=== PATIENT | male | born 1970 | race Caucasian/White ===

== ENCOUNTER 2018-02-09 21:43 | Emergency (ER) | payer BC ==
[2018-02-09] MEDS ORDERED: DIPH,PERTUS(ACELL)TETVAC-LF 0.5 ML VIAL IM ONE (22:37)
[2018-02-09 22:38] VITALS: BP 146/99; PULSE 85; RESP 18; TEMP 98
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
--- NOTE | 2018-02-09 22:52 | XR ---
EXAMINATION TYPE: XR knee complete RT DATE OF EXAM: 02/09/2018 COMPARISON: NONE HISTORY: Knee pain TECHNIQUE: 3 views FINDINGS: I see no fracture nor dislocation. Joint spaces are normal. There is no sign of knee joint effusion. IMPRESSION: Normal right knee
== END 2018-02-09 23:34 | disposition home or self-care (01) ==
LOC: EC 21:43
DX: S83.91XA Sprain of unspecified site of right knee, initial encounter (principal); S80.811A Abrasion, right lower leg, initial encounter; Z23 Encounter for immunization; Z88.8 Allergy status to other drugs, medicaments and biological substances; Z87.891 Personal history of nicotine dependence; V94.0XXA Hitting object or bottom of body of water due to fall from watercraft, initial encounter; X50.1XXA Overexertion from prolonged static or awkward postures, initial encounter; Y92.89 Other specified places as the place of occurrence of the external cause
CPT/HCPCS: 99283; 90471; 73562; 90715; L1830

== ENCOUNTER 2019-09-03 06:57 | Day surgery (SDC) | payer BC ==
[2019-09-01 09:04] VITALS: BMI 29.2
[~2019-09-03 06:57] MED LIST: DEXAMETHASONE SOD PHOSPHATE 10 MG/ML 1 ML VIAL IV ONE; HEPARIN SODIUM,PORCINE 5,000 UNIT/ML 1 ML VIAL SQ ONE; HYDROmorphone 0.5 MG/0.5 ML SYRINGE IVP PRN; LACTATED RINGERS 1,000 ML IV SCH; MIDAZOLAM 2 MG/2 ML VIAL IV PRN; ONDANSETRON 4 MG/2 ML VIAL IVP ONE; SCOPOLAMINE 1.5MG/72HR PATCH TRANSDERM ONE; metroNIDAZOLE-NS PMX 500 MG in SALINE 1 100ML.BAG IVPB ONE
[2019-09-03] MEDS ORDERED: LIDOCAINE 1% 20 ML VIAL (10MG/ML) FOR IV START INTRADERMA ONE (07:34)
[2019-09-03] MEDS ORDERED: PROPOFOL 10 MG/ML 20 ML VIAL IV ONE (07:53)
[2019-09-03] MEDS ORDERED: MIDAZOLAM 2 MG/2 ML VIAL ONE (07:53)
[2019-09-03] MEDS ORDERED: fentaNYL (PF) 50 MCG/ML 2 ML AMP ONE (07:53)
[2019-09-03] MEDS ORDERED: SUCCINYLCHOLINE CHLORIDE 100 MG/5 ML SYR IV ONE (07:53)
[2019-09-03] MEDS ORDERED: ePHEDrine SULFATE/0.9% NACL/PF 50 MG/5 ML SYRINGE IV ONE (07:53)
[2019-09-03] MEDS ORDERED: LIDOCAINE 1% INJ 10MG/ML (20 ML MDV) ONE (07:53)
[2019-09-03] MEDS ORDERED: METHYLENE BLUE 10 MG/ML (10 ML VIAL) MISCELLANE ONE (07:58)
[2019-09-03] MEDS ORDERED: BUPIVACAINE (PF) 0.25% 30 ML VIAL SQ ONE (07:58)
[2019-09-03] MEDS ORDERED: NALOXONE 0.4 MG/ML 1 ML VIAL IV PRN (08:52)
[2019-09-03] MEDS ORDERED: HYDROmorphone 0.5 MG/0.5 ML SYRINGE IVP PRN (08:52)
[2019-09-03 09:10] VITALS: TEMP 96.9
--- NOTE | 2019-09-03 09:19 | P.OP ---
Date of Procedure: 09/03/19 Procedure(s) Performed: PREOPERATIVE DIAGNOSIS: Pilonidal cyst POSTOPERATIVE DIAGNOSIS: Same PROCEDURE: Pilonidal cystectomy SURGEON: Brian ROSSL: Minimal ANESTHESIA: General COMPLICATIONS: None OPERATIVE PROCEDURE: Patient was placed prone on the operating table. The gluteal crease was prepped and draped in usual sterile fashion after the patient was placed in the prone jackknife position. The pilonidal cyst opening was instilled with methylene blue solution. An elliptical incision was made around the pilonidal cyst opening including the additional puncta that were present inferiorly. Dissection took place down through the subcutaneous tissues using sharp dissection. Care was taken to be sure that the entire cyst cavity was removed. Specimen was sent to pathology. The operative site was irrigated with saline. It was then infiltrated with local anesthesia. The subcutaneous tissues were then reapproximated using interrupted 3-0 Vicryl sutures. The skin was closed using a interrupted 30 nylon horizontal mattress sutures. Sterile dressings then applied. DISPOSITION: Stable to recovery room
[2019-09-03 10:17] VITALS: BP 116/72; PULSE 77; RESP 16
== END 2019-09-03 10:30 | disposition home or self-care (01) ==
LOC: OR 06:57
PROVIDERS: ATTEND Surgery
DX: L05.91 Pilonidal cyst without abscess (principal); Z82.49 Family history of ischemic heart disease and other diseases of the circulatory system; Z86.14 Personal history of Methicillin resistant Staphylococcus aureus infection; I49.3 Ventricular premature depolarization; G47.33 Obstructive sleep apnea (adult) (pediatric); Z99.89 Dependence on other enabling machines and devices; Z86.61 Personal history of infections of the central nervous system; F17.200 Nicotine dependence, unspecified, uncomplicated; Z79.899 Other long term (current) drug therapy; Z88.8 Allergy status to other drugs, medicaments and biological substances; Z91.048 Other nonmedicinal substance allergy status
CPT/HCPCS: 11770; 88304; J2250; J1644; J1100; J0690; J2405; J2001; Q9968; J3010; J0330; J2704

== ENCOUNTER 2020-01-26 16:09 | Inpatient (IN) | payer BC ==
[2020-01-26] MEDS ORDERED: SODIUM CHLORIDE 0.9% 1,000 ML IV STA (17:48)
--- NOTE | 2020-01-26 18:34 | XR ---
EXAMINATION TYPE: XR foot complete RT DATE OF EXAM: 01/26/2020 CLINICAL HISTORY: Pain and swelling redness worse over first toe. TECHNIQUE: Frontal, lateral, and oblique images of the right foot are obtained. COMPARISON: None FINDINGS: There is no acute fracture/dislocation evident in the right foot. Some irregularity in the first metatarsal head with sclerosis is present. Extension to involve the medial base of the first m etatarsal with adjacent soft tissue ossifications are present. Findings favor product of chronic oste omyelitis but difficult to exclude some acute involvement as there are some lucent areas noted withou t prior comparison. Flexion and the second through fifth toes incidentally noted. Calcifications dist al Achilles tendon incidentally noted. The overlying soft tissue appears unremarkable. IMPRESSION: As above.
[2020-01-26] MEDS ORDERED: VANCOMYCIN IV PER PHARMACY 1 EACH MISC MISCELLANE PRN (18:52)
[2020-01-26] MEDS ORDERED: PIPERACILLIN-TAZOBACTAM 3.375 GM in SODIUM CHLORIDE 0.9% 100 ML IVPB STA (18:52)
[2020-01-26 19:12] LABS: Basophils # (A) 0.1 k/uL (0-0.2); Basophils % (A) 1 %; Eosinophils # (A) 0.3 k/uL (0-0.7); Eosinophils % (A) 3 %; HCT 46.2 % (39.0-53.0); HGB 15.1 gm/dL (13.0-17.5); Lymphocytes # (A) 3.1 k/uL (1.0-4.8); Lymphocytes % (A) 31 %; MCH 29.2 pg (25.0-35.0); MCHC 32.6 g/dL (31.0-37.0); MCV 89.5 fL (80.0-100.0); Mean Platelet Volume 7.8; Monocytes # (A) 0.6 k/uL (0-1.0); Monocytes % (A) 6 %; Neutrophils # (A) 5.5 k/uL (1.3-7.7); Neutrophils % (A) 56 %; Platelet Count 301 k/uL (150-450); RBC 5.16 m/uL (4.30-5.90); RDW 13.8 % (11.5-15.5); WBC 9.9 k/uL (3.8-10.6)
[2020-01-26 19:19] LABS: ALT 36 U/L (4-49); AST 33 U/L (17-59); African American GFR (CKD) >90 (>60 ml/min/1.73 sqM); Albumin 4.6 g/dL (3.5-5.0); Alkaline Phosphatase 66 U/L (38-126); Anion Gap 10 mmol/L; Blood Urea Nitrogen 20 mg/dL (9-20); Calcium 10.1 mg/dL (8.4-10.2); Carbon Dioxide 25 mmol/L (22-30); Chloride 105 mmol/L (98-107); Glucose 96 mg/dL (74-99); Non-African American GFR(CKD) >90 (>60 ml/min/1.73 sqM); Potassium 4.2 mmol/L (3.5-5.1); Sodium 140 mmol/L (137-145); Total Bilirubin 0.3 mg/dL (0.2-1.3); Total Protein 7.5 g/dL (6.3-8.2)
[2020-01-26] MEDS ORDERED: VANCOMYCIN 2,000 MG in SODIUM CHLORIDE 0.9% 500 ML 500 ML IVPB ONE (19:30)
[2020-01-26] MEDS ORDERED: diphenhydrAMINE 50 MG/ML 1 ML VIAL IVP STA (19:50)
[2020-01-26] MEDS ORDERED: NALOXONE 0.4 MG/ML 1 ML VIAL IV PRN (20:26)
--- NOTE | 2020-01-26 20:28 | ED ---
General Adult HPI - General Chief complaint: Wound/Laceration Stated complaint: recheck - infected toe Time Seen by Provider: 01/26/20 16:43 Source: patient, RN notes reviewed, old records reviewed Mode of arrival: ambulatory Limitations: no limitations - History of Present Illness Initial comments: 50-year-old male patient is ED for evaluation of right great toe. Patient has a long history of this toe in 2016 he had a significant infection of this toe reportedly MSSA yesterday he was working in his yard when he came back he noticed that his right great toe was red and painful. Patient also reports that while working he had some sort of puncture in the right great toe through the dorsum of his shoe. He states that it was a thorn of a fine states that it was not a bandar. Patient was seen by his primary care provider is that she is on Rocephin as well as Bactrim. He reports that since then he is not having drainage from his toe the redness has gotten worse and he is very concerned. He denies any systemic symptoms. Denies any other complaints. Systemic: Pt denies fatigue, fever/chills. Pt denies weakness, night sweats, weight loss. Neuro: Pt denies headache, visual disturbances, syncope or pre-syncope. HEENT: Pt denies ocular discharge or irritation, otalgia, rhinorrhea, pharyngitis or notable lymphadenopathy. Cardiopulmonary: Pt denies chest pain, SOB, heart palpitations, dyspnea on exertion. Abdominal/GI: Pt denies abdominal pain, n/v/d. : Pt denies dysuria, burning w/ urination, frequency/urgency. Denies new onset urinary or bowel incontinence. MSK: Pt denies myalgia, loss of strength or function in extremities. Neuro: Pt denies new onset weakness, paresthesias. - Related Data Home Medications Medication Instructions Recorded Confirmed Albuterol Inhaler (Mhu) [Ventolin 2 puff INHALATION RT-BID PRN 02/09/18 01/26/20 Hfa Inhaler] Nicotine Polacrilex [Nicorette] 4 mg PO Q2-3H PRN 01/26/20 01/26/20 Allergies Allergy/AdvReac Type Severity Reaction Status Date / Time mold Allergy Verified 01/26/20 19:15 bupropion [From Wellbutrin] AdvReac Anaphylaxis Verified 01/26/20 19:15 Review of Systems ROS Statement: Those systems with pertinent positive or pertinent negative responses have been documented in the HPI. ROS Other: All systems not noted in ROS Statement are negative. Past Medical History Past Medical History: Asthma, Sleep Apnea/CPAP/BIPAP Additional Past Medical History / Comment(s): pilonidal cyst,PVCs,uses cpap,Hx sepsis post foot surgery-MSSA infection,viral meningitis 2019 History of Any Multi-Drug Resistant Organisms: None Reported Date of last positivie culture/infection: MSSA right foot MDRO Source:: MSSA Past Surgical History: Back Surgery, Orthopedic Surgery Additional Past Surgical History / Comment(s): ORIF rt foot-mult surgeries and hardware removed Past Anesthesia/Blood Transfusion Reactions: No Reported Reaction Past Psychological History: No Psychological Hx Reported Smoking Status: Former smoker Past Alcohol Use History: Rare Past Drug Use History: None Reported - Past Family History Mother Family Medical History: No Reported History General Exam - General Exam Comments Initial Comments: Constitutional: NAD, AOX3, Pt has pleasant affect. HEENT: NC/AT, trachea midline. External ears appear normal, without discharge. Mucous membranes moist. EOM intact. There is no scleral icterus. No pallor noted. Cardiopulmonary: RRR, no murmurs, rubs or gallops, no JVD noted. Lungs CTAB in anterior and posterior grijalva. No peripheral edema. Abdominal exam: Abdomen soft and non-distended. Abdomen non-tender to palpation in all 4 quadrants. Bowel sounds active in LLQ. No ecchymosis Neuro: CN II-XII grossly intact. No nuchal rigidity. No raccon eyes, no feliz sign, no hemotympanum. No cervical spinal tenderness. MSK: Right great toe is erythematous with superficial blisters noted erythema is extending up the proximal aspect of the first metatarsal. No posterior calf tenderness bilaterally, homans sign negative bilaterally. Posterior tibialis and radial pulse +2 bilaterally. Sensation intact in upper and lower extremities. Full active ROM in upper and lower extremities, 5/5 stregnth. Limitations: no limitations Course Vital Signs 01/26/20 16:37 Temperature 96.4 F L Pulse Rate 82 Respiratory 17 Rate Blood Pressure 146/88 O2 Sat by Pulse 97 Oximetry Medical Decision Making - Medical Decision Making 50-year-old male patient is ED for evaluation of right great toe. Patient has a long history of this toe in 2016 he had a significant infection of this toe reportedly MSSA yesterday he was working in his yard when he came back he noticed that his right great toe was red and painful. Patient also reports that while working he had some sort of puncture in the right great toe through the dorsum of his shoe. He states that it was a thorn of a fine states that it was not a bandar. Patient was seen by his primary care provider is that she is on Rocephin as well as Bactrim. He reports that since then he is not having drainage from his toe the redness has gotten worse and he is very concerned. He denies any systemic symptoms. Denies any other complaints. Patient vital signs are stable, afebrile. Physical exam displayed: Right great toe is erythematous with superficial blisters noted erythema is extending up the proximal aspect of the first metatarsal. Point films displayed no acute fracture dislocation. Findings are chronic osteomyelitis but difficult to exclude some acute involvement. Patient is here and Zosyn and vancomycin. Patient tetanus updated in 2018. Will be admitted for further elevation. Case discussed with Dr. Villarreal. - Lab Data Result diagrams: 01/26/20 18:30 01/26/20 18:30 Lab Results 01/26/20 01/26/20 01/26/20 Range/Units 18:30 18:30 18:30 WBC 9.9 (3.8-10.6) k/uL RBC 5.16 (4.30-5.90) m/uL Hgb 15.1 (13.0-17.5) gm/dL Hct 46.2 (39.0-53.0) % MCV 89.5 (80.0-100.0) fL MCH 29.2 (25.0-35.0) pg MCHC 32.6 (31.0-37.0) g/dL RDW 13.8 (11.5-15.5) % Plt Count 301 (150-450) k/uL Neutrophils % 56 % Lymphocytes % 31 % Monocytes % 6 % Eosinophils % 3 % Basophils % 1 % Neutrophils # 5.5 (1.3-7.7) k/uL Lymphocytes # 3.1 (1.0-4.8) k/uL Monocytes # 0.6 (0-1.0) k/uL Eosinophils # 0.3 (0-0.7) k/uL Basophils # 0.1 (0-0.2) k/uL Sodium 140 (137-145) mmol/L Potassium 4.2 (3.5-5.1) mmol/L Chloride 105 (98-107) mmol/L Carbon Dioxide 25 (22-30) mmol/L Anion Gap 10 mmol/L BUN 20 (9-20) mg/dL Creatinine 0.83 (0.66-1.25) mg/dL Est GFR (CKD-EPI)AfAm >90 (>60 ml/min/1.73 sqM) Est GFR (CKD-EPI)NonAf >90 (>60 ml/min/1.73 sqM) Glucose 96 (74-99) mg/dL Plasma Lactic Acid Eros 1.3 (0.7-2.0) mmol/L Calcium 10.1 (8.4-10.2) mg/dL Total Bilirubin 0.3 (0.2-1.3) mg/dL AST 33 (17-59) U/L ALT 36 (4-49) U/L Alkaline Phosphatase 66 (38-126) U/L Total Protein 7.5 (6.3-8.2) g/dL Albumin 4.6 (3.5-5.0) g/dL Disposition Clinical Impression: Foot infection Disposition: ADMITTED IP TO THIS HOSP Condition: Serious Is patient prescribed a controlled substance at d/c from ED?: No Referrals: Stefan Mcmillan MD [Primary Care Provider] - 1-2 days
[2020-01-26] MEDS: SODIUM CHLORIDE 0.9% 1,000 ML IV SCH ×2 (20:52→21:49)
[2020-01-27] MEDS ORDERED: IPRATROPIUM-ALBUTEROL 3 ML NEB INHALATION PRN (04:21)
[2020-01-27] MEDS ORDERED: VANCOMYCIN IV PER PHARMACY 1 EACH MISC MISCELLANE PRN (04:23)
--- NOTE | 2020-01-27 04:23 | P.HPIM ---
History of Present Illness H&P Date: 01/26/20 The patient was seen and examined in the emergency room on 01/26 at 9 PM The patient is a 50-year-old male with a PMH of R great toe osteomyelitis (2014 - at a hospital in [place], subsequent sepsis with ICU stay) presented to the ED with complaints of sudden onset of right great toe swelling, warmth, and pain. The patient notes that his symptoms started yesterday a few hours after he had worked in the [place] clearing up some bushes. He reports possible contact with poison aubree, though cannot be sure. The patient subsequently went to his PMD earlier today and was given an IM ceftriaxone dose and was prescribed Bactrim and was advised that if his symptoms persist or worsen, that he should come to the emergency room. The patient notes that he continued to have significant right toe pain, 5 out of 10, nonradiating, which prompted him to come to the emergency room. He denied fever, chills, nausea, vomiting, chest pain, shortness of breath. In the ED, foot x-ray revealed likely chronic osteomyelitis of the right first metatarsal with possible acute osteomyelitis. Laboratory evaluation revealed a WBC count of 9.9, hemoglobin 15.1, platelets 301, sodium 140, potassium 4.2, BUN 20, creatinine 0.83, and glucose 96 with lactate 1.3. Review of Systems Pertinent positives and negatives as discussed in HPI, a complete review of systems was performed and all other systems are negative. Past Medical History Past Medical History: Asthma, Sleep Apnea/CPAP/BIPAP Additional Past Medical History / Comment(s): pilonidal cyst,PVCs,uses cpap,Hx sepsis post foot surgery-MSSA infection,viral meningitis 2019 History of Any Multi-Drug Resistant Organisms: None Reported Date of last positivie culture/infection: MSSA right foot MDRO Source:: MSSA Past Surgical History: Back Surgery, Orthopedic Surgery Additional Past Surgical History / Comment(s): ORIF rt foot-mult surgeries and hardware removed Past Anesthesia/Blood Transfusion Reactions: No Reported Reaction Past Psychological History: No Psychological Hx Reported Smoking Status: Former smoker Past Alcohol Use History: Rare Additional Past Alcohol Use History / Comment(s): started at age 20-on and off- trying to quit-<1ppd Past Drug Use History: None Reported - Past Family History Mother Family Medical History: No Reported History Medications and Allergies Home Medications Medication Instructions Recorded Confirmed Type Albuterol Inhaler (Mhu) [Ventolin 2 puff INHALATION RT-BID PRN 02/09/18 01/26/20 History Hfa Inhaler] Nicotine Polacrilex [Nicorette] 4 mg PO Q2-3H PRN 01/26/20 01/26/20 History Allergies Allergy/AdvReac Type Severity Reaction Status Date / Time mold Allergy Verified 01/26/20 19:15 bupropion [From Wellbutrin] AdvReac Anaphylaxis Verified 01/26/20 19:15 Physical Exam Vitals: Vital Signs Temp Pulse Resp BP Pulse Ox 01/26/20 21:31 98.3 F 61 16 154/92 99 01/26/20 16:37 96.4 F L 82 17 146/88 97 Intake and Output 01/26/20 01/26/20 01/26/20 06:59 14:59 22:59 Other: # Voids 1 Weight 119.748 kg General: non toxic, no distress, appears at stated age, overweight Derm: Right great toe purple discoloration warmth and single fluid-filled blister 2 cm noted, tenderness of right great toe, with erythema extending to the second metatarsal, no open wounds noted, warm, dry Head: atraumatic, normocephalic, symmetric Eyes: EOMI, no lid lag, anicteric sclera, pupils equal round reactive to light ENT: Nose and ears atraumatic, no thrush, no pharyngeal erythema Neck: No thyromegaly, no cervical lymphadenopathy, trachea midline, supple Mouth: no lip lesion, mucus membranes moist Cardiovascular: S1S2 reg, no murmur, positive posterior tibial pulse bilateral, no edema, capillary refill less than 2 seconds Lungs: CTA bilateral, no rhonchi, no rales , no accessory muscle use Abdominal: soft, nontender to palpation, no guarding, no appreciable organomegaly, normal bowel sounds Ext: no gross muscle atrophy, muscle strength 5 out of 5 in all 4 extremities grossly, no contractures, Neuro: CN II-XI grossly intact, light touch intact all 4 extremities, finger to nose within normal limits, Psych: Alert, oriented, appropriate affect Results CBC & Chem 7: 01/26/20 18:30 01/26/20 18:30 Thrombosis Risk Factor Assmnt - Choose All That Apply Any of the Below Risk Factors Present?: Yes Each Factor Represents 1 point: Age 41-60 years Other Risk Factors: No Other congenital or acquired thrombophilia - If yes, enter type in comment: No Thrombosis Risk Factor Assessment Total Risk Factor Score: 1 Thrombosis Risk Factor Assessment Level: Low Risk Assessment and Plan Plan: Right great toe erythema and discoloration with pain, likely acute on chronic osteomyelitis -Consult orthopedic surgery and infectious disease -Continue with vancomycin and start cefazolin -Follow up blood cultures -Continue with IV fluids History of asthma -DuoNeb's when necessary DVT prophylaxis -Heparin subq The patient is admitted with an anticipated greater than 2 midnight stay for evaluation of osteomyelitis CODE STATUS: Full Code Discussed with: Patient Anticipated discharge date: 2-[address]: Home A total of 35 minutes was spent on the care of this complex patient more than 50% of the time was spent in counseling and care coordination.
[2020-01-27] MEDS ORDERED: VANCOMYCIN 2,000 MG in SODIUM CHLORIDE 0.9% 500 ML 500 ML IVPB SCH (06:00)
[2020-01-27] MEDS: VANCOMYCIN 2,000 MG in SODIUM CHLORIDE 0.9% 500 ML 500 ML IVPB SCH ×2 (06:11→15:25)
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
[2020-01-27 09:34] LABS: HCT 45.4 % (39.0-53.0); MCH 30.1 pg (25.0-35.0); Mean Platelet Volume 7.8; Platelet Count 279 k/uL (150-450); RBC 4.98 m/uL (4.30-5.90); RDW 13.7 % (11.5-15.5)
[2020-01-27] MEDS: HEPARIN SODIUM,PORCINE 5,000 UNIT/ML 1 ML VIAL SQ SCH ×3 (09:52→22:59)
[2020-01-27] MEDS: SODIUM CHLORIDE 0.9% 1,000 ML IV SCH ×2 (09:56→22:07)
--- NOTE | 2020-01-27 20:30 | P.PN ---
Subjective Progress Note Date: 01/27/20 (delayed charting seen at 1030) Principal diagnosis: right foot pain Patient is a 50-year-old male with a history of right great toe osteomyelitis treated with IV antibiotics but no amputation, sleep apnea, and asthma who presented to the emergency department with right great toe pain and swelling. He had been seen at his primary care physician's office earlier in and given a dose of Rocephin IM as well as a prescription for Bactrim. He took one dose of his Bactrim prescription. He felt as though his foot continued to worsen and he therefore presented to the emergency department. In the ER his laboratory analysis was essentially unremarkable. X-ray of the foot revealed chronic osteomyelitis with possible acute posterior. Orthopedics was consulted and compared this to his x-ray back in 2018 unit. Unremarkable. Infectious disease was consulted. He had been started on vancomycin and Keflex. By the morning after admission patient reported improvement in his toe pain and discoloration. Patient seen and examined at bedside. He states his toe pain is resolved. He believes the color is better. He denies any chest pain, shortness breath, n ausea, vomiting, or diarrhea. Objective - Vital Signs Vital signs: Vital Signs Temp 98.1 F 01/27/20 19:00 Pulse 59 L 01/27/20 19:00 Resp 18 01/27/20 19:00 BP 144/89 01/27/20 19:00 Pulse Ox 99 01/27/20 19:00 Intake & Output 01/27/20 01/27/20 01/28/20 06:59 18:59 06:59 Intake Total 1800 Balance 1800 Weight 119.748 kg Intake: Intake, IV Titration 850 Amount Sodium Chloride 0.9% 1, 300 000 ml @ 75 mls/hr IV . [id number] BRIA Rx#:[id number] Vancomycin 2,000 mg In 500 Sodium Chloride 0.9% 500 ml 500 ml @ 167 mls/hr IVPB Q8H BRIA Rx#: [id number] ceFAZolin 2 gm In Sodium 50 Chloride 0.9% 50 ml @ 100 mls/hr IVPB Q8HR BRIA Rx# :[id number] Oral 950 Other: # Voids 1 3 - Exam General: non toxic, no distress, appears at stated age Derm: Right great toe appears twice the size of the left great toe, redness and purplish discoloration, draining serous fluid, one blister, no warmth, warm, dry Head: atraumatic, normocephalic, symmetric Eyes: EOMI, no lid lag, anicteric sclera Mouth: no lip lesion, mucus membranes moist Cardiovascular: S1S2 reg, no murmur, positive posterior tibial pulse bilateral, Lungs: CTA bilateral, no rhonchi, no rales , no accessory muscle use Abdominal: soft, nontender to palpation, no guarding, no appreciable organomegaly Ext: no gross muscle atrophy, no edema, no contractures Neuro: CN II-XI grossly intact, no focal neuro deficits Psych: Alert, oriented, appropriate affect - Labs CBC & Chem 7: 01/27/20 08:57 01/26/20 18:30 Assessment and Plan Assessment: Right great toe cellulitis, doubt acute osteomyelitis but does have chronic osteo -Await infectious disease recommendations -Continue with Keflex and vancomycin -Orthopedic recommendations appreciated -Pain control History of asthma -DuoNeb's when necessary DVT prophylaxis: SCDs Discussed with: patient, nursing Anticipated discharge: in AM Anticipated discharge place: home A total of 25 minutes was spent on the care of this complex patient more than 50% of the time was spent in counseling and care coordination.
[2020-01-27] MEDS ORDERED: ACETAMINOPHEN TAB 325 MG TAB PO PRN (21:18)
[2020-01-28] MEDS ORDERED: VANCOMYCIN TROUGH DUE 1 EACH MISC MISCELLANE ONE (05:00)
[2020-01-28 06:09] LABS: HCT 44.7 % (39.0-53.0); HGB 14.5 gm/dL (13.0-17.5); MCH 28.7 pg (25.0-35.0); MCHC 32.4 g/dL (31.0-37.0); MCV 88.7 fL (80.0-100.0); Mean Platelet Volume 7.8; Platelet Count 275 k/uL (150-450); RBC 5.04 m/uL (4.30-5.90); RDW 13.6 % (11.5-15.5); WBC 7.3 k/uL (3.8-10.6)
[2020-01-28 06:19] LABS: African American GFR (CKD) >90 (>60 ml/min/1.73 sqM); Anion Gap 5 mmol/L; Blood Urea Nitrogen 13 mg/dL (9-20); Calcium 9.2 mg/dL (8.4-10.2); Carbon Dioxide 24 mmol/L (22-30); Chloride 107 mmol/L (98-107); Glucose 97 mg/dL (74-99); Non-African American GFR(CKD) >90 (>60 ml/min/1.73 sqM); Potassium 4.2 mmol/L (3.5-5.1); Sodium 136 mmol/L (137-145)
[2020-01-28 07:55] VITALS: BP 120/80; PULSE 106; RESP 16; TEMP 98.7
--- NOTE | 2020-01-28 08:55 | P.PN ---
Subjective Progress Note Date: 01/28/20 Principal diagnosis: Right great toe superficial infection This is a 50 year-old male who was admitted for a right great toe infection. The patient was evaluated at the bedside today. The patient denies fever, chills, nausea, vomiting, abdominal pain, shortness of breath, and chest pain this morning. He states his pain is controlled at this time. Dr. Dougherty has seen the patient and anticipates he can go home today with oral antibiotics. Objective - Vital Signs Vital signs: Vital Signs Temp 98.7 F 01/28/20 07:00 Pulse 106 H 01/28/20 07:00 Resp 16 01/28/20 07:00 BP 120/80 01/28/20 07:00 Pulse Ox 98 01/28/20 07:00 Intake & Output 01/27/20 01/28/20 01/28/20 18:59 06:59 18:59 Intake Total 1800 300 Balance 1800 300 Intake: Intake, IV Titration 850 Amount Sodium Chloride 0.9% 1, 300 000 ml @ 75 mls/hr IV . [id number] BRIA Rx#:[id number] Vancomycin 2,000 mg In 500 Sodium Chloride 0.9% 500 ml 500 ml @ 167 mls/hr IVPB Q8H BRIA Rx#: [id number] ceFAZolin 2 gm In Sodium 50 Chloride 0.9% 50 ml @ 100 mls/hr IVPB Q8HR BRIA Rx# :[id number] Oral 950 300 Other: # Voids 3 1 - Exam The patient is a 50 y/o male in no acute distress. He is alert and oriented x3. Exam of the right foot reveals a healed incision over the dorsal medial aspect of the 1st MTP joint. There is continued improvement and erythema to the dorsal aspect of the great toe. There is some improvement in the blisters as well. No open blisters are present. No areas of fluctuation are present. No red streaking or swelling into the foot. Calf is soft and non-tender. Foot is warm and well-perfused. Capillary refill <2 seconds. - Labs CBC & Chem 7: 01/28/20 05:51 01/28/20 05:51 Labs: Abnormal Lab Results - Last 24 Hours (Table) 01/28/20 Range/Units 05:51 Sodium 136 L (137-145) mmol/L Microbiology - Last 24 Hours (Table) 01/26/20 20:28 Blood Culture - Preliminary Blood No Growth after 24 hours Assessment and Plan (1) Foot infection Current Visit: Yes Status: Acute Code(s): L08.9 - LOCAL INFECTION OF THE SKIN AND SUBCUTANEOUS TISSUE, UNSP SNOMED Code(s): 379950385 Plan: The clinical and x-ray findings were discussed with the patient. The case was discussed at length with Dr. Titus. No surgical intervention is planned at this time. No acute changes on x-ray or MRI (from 2018) are present since 2018. A superficial skin infection is suspected. Since he is improving, he may be discharged today from an orthopedic standpoint with oral antibiotics. We recommend heat and elevation of the foot. Antibiotics per infectious disease. He may follow up with us on an outpatient basis if needed in 1 week.
--- NOTE | 2020-01-28 09:10 | P.CONS ---
History of Present Illness - Reason for Consult Consult date: 01/27/20 Right big toe cellulitis and question of osteomyelitis Requesting physician: Ladarius White - Chief Complaint Right big toe swelling and redness x 2 days - History of Present Illness Patient is a 50-year-old male with a past medical history significant for hammertoe deformity of the right big toe status post surgical correction in this patient's clinical course complicated by development of postoperative infection and Osteomyelitis with MSSA bacteremia requiring removal of all the hardware patient mentioned since then the patient big toe has been swollen more compared to his left big toe is and has [facility] and had did show some structure changes from his previous episode of osteomyelitis patient apparently was working outside in the yard that he gets inside few days ago he noticed his right big toe was swollen and red he did have some dull aching pain to right big toe with intensity of 3-4 out of 10 and no radiation, with these symptoms the patient was evaluated by his primary care physician where apparently the patient did have some cultures obtained he was given a dose of Rocephin and was discharged on Bactrim DS and instruction if any worsening of the redness to go to the ER the patient noticed redness to be spreading for the patient Is Admitted to [facility] ER Patient Arrived Has Been Afebrile and Did Have a Normal White Count , patient did have blood cultures are currently pending x-rays did shows some features of ostial myelitis patient has been started on vancomycin and cefazolin infectious disease was consulted for further management of antibiotic therapy she Review of Systems Positive point has been mentioned in the HPI rest of the systems are negative Past Medical History Past Medical History: Asthma, Sleep Apnea/CPAP/BIPAP Additional Past Medical History / Comment(s): pilonidal cyst,PVCs,uses cpap,Hx sepsis post foot surgery-MSSA infection,viral meningitis 2019 History of Any Multi-Drug Resistant Organisms: None Reported Year Discovered:: MSSA right foot MDRO Source:: MSSA Past Surgical History: Back Surgery, Orthopedic Surgery Additional Past Surgical History / Comment(s): ORIF rt foot-mult surgeries and hardware removed Past Anesthesia/Blood Transfusion Reactions: No Reported Reaction Past Psychological History: No Psychological Hx Reported Smoking Status: Former smoker Past Alcohol Use History: Rare Additional Past Alcohol Use History / Comment(s): started at age 20-on and off- trying to quit-<1ppd Past Drug Use History: None Reported - Past Family History Mother Family Medical History: No Reported History Medications and Allergies Home Medications Medication Instructions Recorded Confirmed Type Albuterol Inhaler (Mhu) [Ventolin 2 puff INHALATION RT-BID PRN 02/09/18 01/26/20 History Hfa Inhaler] Nicotine Polacrilex [Nicorette] 4 mg PO Q2-3H PRN 01/26/20 01/26/20 History Allergies Allergy/AdvReac Type Severity Reaction Status Date / Time mold Allergy Verified 01/26/20 19:15 bupropion [From Wellbutrin] AdvReac Anaphylaxis Verified 01/26/20 19:15 Physical Exam Vitals: Vital Signs Temp Pulse Pulse Resp BP BP Pulse Ox 01/27/20 11:37 97.5 F L 64 17 145/97 98 01/27/20 05:00 78 19 96 01/27/20 01:00 97.4 F L 65 20 152/105 100 01/26/20 21:31 98.3 F 61 16 154/92 99 01/26/20 16:37 96.4 F L 82 17 146/88 97 Intake and Output 01/27/20 01/27/20 01/27/20 06:59 14:59 22:59 Intake Total 150 Balance 150 Intake: Oral 150 GENERAL DESCRIPTION: Middle-aged male lying in bed, no distress. No tachypnea or accessory muscle of respiration use. HEENT: Shows Pallor , no scleral icterus. Oral mucous membrane is dry. No pharyngeal erythema or thrush NECK: Trachea central, no thyromegaly. LUNGS: Unlabored breathing. Clear to auscultation anteriorly. No wheeze or crackle. HEART: S1, S2, regular rate and rhythm. No loud murmur ABDOMEN: Soft, no tenderness , guarding or rigidity, no organomegaly EXTREMITIES: No edema of feet. Right big toe is swollen red no purulent d rainage SKIN: No rash, no masses palpable. NEUROLOGICAL: The patient is awake, alert, oriented x3, mood and affect normal. Results CBC & Chem 7: 01/28/20 05:51 01/28/20 05:51 Assessment and Plan Assessment: 1- patient with a right big toe cellulitis in this patient currently with no fever or elevated white count in excess findings may be related to his previous episodes ofOsteomyelitis as the patient is currently not behaving as ostial myelitis/deep infection and more likely from a positive skin amee suggests strep and less likely MRSA or gram-negative infection (1) Cellulitis of right foot Current Visit: Yes Status: Acute Code(s): L03.115 - CELLULITIS OF RIGHT LOWER LIMB SNOMED Code(s): 066523264 Plan: 1- discontinue the vancomycin 2-cefazolin 2 g every 8 hours to continue for another 24 hour in the patient continued to improve hopefully to finish therapy with oral antibiotics We will follow on clinical condition and cultures to further adjust medication if needed Thank you for this consultation will follow this patient with you Time with Patient: Greater than 30
[2020-01-28] MEDS: HEPARIN SODIUM,PORCINE 5,000 UNIT/ML 1 ML VIAL SQ SCH (09:41)
--- NOTE | 2020-01-28 10:30 | P.DS ---
Providers Date of admission: 01/26/20 20:05 Expected date of discharge: 01/28/20 Attending physician: Ladarius White MD Consults: 01/27/20 04:18 Consult Physician Routine Consulting Provider: Luis Felipe Dougherty Consult Reason/Comments: R great toe suspected osteo Do you want consulting provider notified?: Yes Consult Physician Urgent Consulting Provider: Ward Titus Consult Reason/Comments: R great toe possible osteo Do you want consulting provider notified?: Yes Primary care physician: Stefan [facility] Course: Discharge Diagnosis: Right great toe cellulitis Asthma Hospital Course: Patient is a 50-year-old male with a history of right great toe osteomyelitis treated with IV antibiotics but no amputation, sleep apnea, and asthma who presented to the emergency department with right great toe pain and swelling. He had been seen at his primary care physician's office earlier in the day and given a dose of Rocephin IM as well as a prescription for Bactrim. He took one dose of his Bactrim prescription. He felt as though his foot continued to worsen and he therefore presented to the emergency department. In the ER his laboratory analysis was essentially unremarkable. X-ray of the foot revealed chronic osteomyelitis with possible acute posterior. Orthopedics was consulted and compared this to his x-ray back in 2018 unit. Unremarkable. Infectious disease was consulted. He had been started on vancomycin and Keflex. By the morning after admission patient reported improvement in his toe pain and discoloration. Patient seen and examined at bedside. Feeling good, pain is better, toe is better, no nausea, no vomiting, wants to go home. Vital signs reviewed and stable. General: non toxic, no distress, appears at stated age Derm: redness no warmth right great toe warm, dry Head: atraumatic, normocephalic, symmetric Eyes: EOMI, no lid lag, anicteric sclera Mouth: no lip lesion, mucus membranes moist Cardiovascular: S1S2 reg, no murmur, positive posterior tibial pulse bilateral, Lungs: CTA bilateral, no rhonchi, no rales , no accessory muscle use Abdominal: soft, nontender to palpation, no guarding, no appreciable organomegaly Ext: no gross muscle atrophy, no edema, no contractures Neuro: CN II-XI grossly intact, no focal neuro deficits Psych: Alert, oriented, appropriate affect A total of 35 minutes of time were spent preparing this complex discharge summary . Patient Condition at Discharge: Stable Plan - Discharge Summary Discharge Rx Participant: No New Discharge Prescriptions: Continue Albuterol Inhaler (Mhu) [Ventolin Hfa Inhaler (Mhu)] 2 puff INHALATION RT-BID PRN PRN Reason: Shortness Of Breath Nicotine Polacrilex [Nicorette] 4 mg PO Q2-3H PRN PRN Reason: Nicotine Cravings Discharge Medication List Albuterol Inhaler (Mhu) [Ventolin Hfa Inhaler (Mhu)] 2 puff INHALATION RT-BID PRN 02/09/18 [History] Nicotine Polacrilex [Nicorette] 4 mg PO Q2-3H PRN 01/26/20 [History] Follow up Appointment(s)/Referral(s): Stefan Mcmillan MD [Primary Care Provider] - 1-2 days Ward Titus MD [STAFF PHYSICIAN] - 1 Week Activity/Diet/Wound Care/Special Instructions: Activity: as tolerated Diet: regular Special Instructions: Continue moist heat and elevation of the right great toe Bactrim twice daily for the next 7 days Discharge Disposition: HOME SELF-CARE
== END 2020-01-28 11:09 | disposition home or self-care (01) | DRG 603 ==
LOC: EC 16:09 → 5NMEDONC 20:05 → 4SSUR 01-27 15:27
PROVIDERS: ADMIT Internal Medicine; ATTEND Internal Medicine
DX: L03.031 Cellulitis of right toe (principal); M86.671 Other chronic osteomyelitis, right ankle and foot; J45.909 Unspecified asthma, uncomplicated; G47.30 Sleep apnea, unspecified; Z86.61 Personal history of infections of the central nervous system; Z87.891 Personal history of nicotine dependence; Z88.8 Allergy status to other drugs, medicaments and biological substances; Z11.59 Encounter for screening for other viral diseases; Z99.89 Dependence on other enabling machines and devices
CPT/HCPCS: 36415; 80048; 80053; 80202; 83605; 85025; 85027; 87040; 96361; 96365; 96366; 96367; 96368; 96372; 96375; 99285

== ENCOUNTER → 2020-03-29 | Outpatient (CLI) | payer BC ==
--- NOTE | 2020-03-29 11:55 | P.ARTDOP ---
Arterial Doppler LOWER EXTREMITY ARTERIAL DOPPLER: DATE OF SERVICE: 03/29/2020 Reason for study: Right leg ulcers. Doppler waveforms: Multiphasic bilaterally throughout. Pulse volume recording: []. Pressure gradients: None. Ankle-brachial indices: Greater than 1 bilaterally. Toe brachial indices: 0.87 on the right, 0.88 on the left Impression: Normal study.
== END | disposition home or self-care (01) ==
LOC: RADUSWWP 06:54
PROVIDERS: ATTEND Family Medicine
DX: I73.9 Peripheral vascular disease, unspecified (principal)
CPT/HCPCS: 93922

== ENCOUNTER → 2020-06-08 | Outpatient (CLI) | payer BC ==
[2020-06-08 12:22] LABS: Glucose 2 Hour 157 mg/dL
[2020-06-08 14:38] LABS: Protein, Total 6.8 g/dL (6.2-8.2)
[2020-06-09 14:00] LABS: Albumin 4.27 g/dL (3.80-4.90); Gamma Globulin 0.82 g/dL (0.70-1.50)
[2020-06-09 14:10] LABS: Angiotensin-1 Converting Enz. 25 U/L (8-52)
== END | disposition home or self-care (01) ==
LOC: LABWHC1 08:30
PROVIDERS: ATTEND Psychiatry & Neurology Neurology
DX: G62.9 Polyneuropathy, unspecified (principal)
CPT/HCPCS: 36415; 82164; 82306; 82607; 82947; 82950; 84165; 84207; 84425; 84446; 86038; 86235; 86334

== ENCOUNTER → 2021-03-13 | Outpatient (CLI) | payer BC ==
--- NOTE | 2021-03-13 21:09 | CONS ---
CONSULTATION REASON FOR CONSULTATION: Sleep apnea. HISTORY OF PRESENT ILLNESS: 51-year-old male patient with an established diagnosis of obstructive sleep apnea, who is coming in to establish himself as the patient for sleep apnea at the sleep center at [facility]. His original diagnosis was done in [place] and at that time the patient was found to have moderate severe disease with an AHI of 29. No official documentation on his original sleep study and this is based on the verbal report that was given by the patient. The patient was given a ResMed F9 series and subsequently was given a ResMed Med air sent A Pap units. He did establish himself locally here with Dr. Cruz, yet he was not satisfied with the followups and he ultimately came to us for further advice. He is currently undergoing further cardiac evaluation. He is a bit concerned that his heart rate would go slow at nighttime as he is monitoring his heart rate by his smart device. He also wants to make sure that the treatment is adequate. His sleep apnea treatment is adequate. I was unable to check the patient's machine. Nevertheless, I was able to obtain a compliance data from his machine. I was able to download 30 day compliancy, 90 day compliancy and 1 year compliancy. Based on all the records, the patient has been averaging more than 8 hours of CPAP use per night with an average leak of 16 L/minute and his AHI while on treatment has been less than 1. He has a Castro FX nasal pillow, medium size. He does not snore while on treatment. He averages around 8 hours of sleep per night on average. He goes to bed around midnight, wakes up 8:00 am in the morning. On a few instances while trying to go to sleep he has felt a gasp. However, this does not occur while sleeping. Based on the cardiac heart rate monitor, the average heart rate during the day has been in the mid 70s. His lowest heart rate during sleep has been 42. He dips in the mid 40s during sleep. He has not become symptomatic. No dizziness. No syncope. No lightheadedness. No nighttime angina or shortness of breath or chest pain or heartburn. Wakes up and he denies having any dry mouth. No drowsiness or sleepiness during the day. No grinding of the teeth. His weight has been up over the years and he is maintaining a weight of 275 pounds over the past 10 years at least. He does give history of PVCs in the past and he was being considered for ablation and ultimately these PVCs disappeared. No history of any other cardiovascular disease. No history of atrial fibrillation. No congestion heart failure. No coronary artery disease. PAST MEDICAL HISTORY: 1. History of obstructive sleep apnea. 2. Diverticulosis/diverticulitis. 3. History of septic shock from MSSA. 4. History of viral meningitis. PAST SURGICAL HISTORY: Includes diskectomy L5, foot surgery complicated by Staphylococcal septicemia. DRUG ALLERGIES: WELLBUTRIN. HE IS ALSO ALLERGIC TO POLLEN, MOLD, MILD MILDEW AND HAY FEVER. OUTPATIENT MEDICATION: Albuterol on a p.r.n. basis only. No other medications as maintenance. SOCIAL HISTORY: Nonsmoker. He is an ex-smoker and quit smoking recently. No history of alcoholism. No history of IV drugs. FAMILY HISTORY: Essentially noncontributory to current presentation. It is positive for asthma and sleep apnea and diabetes mellitus. REVIEW OF SYSTEMS: Fourteen-point review of system was done and positive findings are mentioned in history of present illness. PHYSICAL EXAMINATION: BP is 128/91, pulse 66, respirations 16, temperature 97.9. Saturation 98% on room air. Height is 6' 7", weight is 258. Neck size 18-1/4 of an inch. BMI is 29. [place] score is a 3. GENERAL APPEARANCE: Calm, comfortable. HEAD atraumatic, normocephalic. NECK: Supple. No JVD. No goiter or neck masses. Mallampati class 4. LUNGS: Clear to auscultation. HEART: Heart sounds are regular rate and rhythm. Normal S1, S2. No S3, S4. No murmurs. ABDOMEN: Soft, nontender. No organomegaly. EXTREMITIES: No edema. No cyanosis or clubbing. NEUROLOGIC: Awake and alert. There is no focal neurological deficit. PSYCHIATRIC: Negative for anxiety or depression. IMPRESSION: 1. Obstructive sleep apnea, moderately severe with an AHI of 29, currently on APAP unit. The patient is going through his 2nd CPAP unit. Initially was given S9 series and currently he is using a ResMed air sense or a PAP. He has been successfully treated. Compliance data was checked. 2. Nocturnal bradycardia, normal response and is considered to be physiologic. 3. Hypersomnia, recovered and the patient's [place] score is at 3. 4. Obesity, weight 276 with a BMI of 29. 5. Remote history of PVCs, recovered. 6. History of diverticulosis. 7. History of viral meningitis. 8. History of MSSA bacteremia/sepsis post foot surgery. PLAN: Based on available data, I am not seeing any issues with the patient's ongoing CPAP therapy. I checked the compliance data from his ResMed Med air sent AutoSet unit. I was able to demonstrate that the patient has been averaging more than 8 hours of CPAP use per night and his AHI is less than 1 while on treatment. Based on the heart rate monitoring, the drop in heart rate is physiologic and it is considered to be healthy and normal, especially in patients who have been successfully treated with CPAP therapy. As such, I do not see the need to do another evaluation or titration on this patient. I am going to assume his treatment care from this point and on. I reviewed his supplies, which includes a Castro FX nasal pillows. I asked him to lose weight. I asked him to eliminate ramp time which may be one of the reasons why he is having the initial apneas while going to sleep. He will see me back in a year's time in followup. He is going to undergo an echocardiogram and stress and I will be interested in looking in the results of those and, if there is any other issues. PARESH / KAILYNN: [id number] /
== END ==
LOC: SLEEP 14:46
PROVIDERS: ATTEND Internal Medicine Critical Care Medicine
DX: G47.33 Obstructive sleep apnea (adult) (pediatric) (principal); E66.9 Obesity, unspecified; R00.1 Bradycardia, unspecified; Z68.29 Body mass index [BMI] 29.0-29.9, adult; Z99.89 Dependence on other enabling machines and devices; Z86.79 Personal history of other diseases of the circulatory system; Z87.19 Personal history of other diseases of the digestive system; Z86.61 Personal history of infections of the central nervous system; Z86.19 Personal history of other infectious and parasitic diseases; Z98.890 Other specified postprocedural states; Z87.891 Personal history of nicotine dependence; Z91.09 Other allergy status, other than to drugs and biological substances; Z88.8 Allergy status to other drugs, medicaments and biological substances
CPT/HCPCS: 99211

== ENCOUNTER → 2021-04-03 | Outpatient (CLI) | payer BC ==
[~2021-04-03] MED LIST changes: -DEXAMETHASONE SOD PHOSPHATE 10 MG/ML 1 ML VIAL IV ONE; +DOBUTamine DRIP for NUC MED 500 MG in DEXTROSE/WATER 1 250ML.BAG IV PRN; -HEPARIN SODIUM,PORCINE 5,000 UNIT/ML 1 ML VIAL SQ ONE; -HYDROmorphone 0.5 MG/0.5 ML SYRINGE IVP PRN; -LACTATED RINGERS 1,000 ML IV SCH; -MIDAZOLAM 2 MG/2 ML VIAL IV PRN; -ONDANSETRON 4 MG/2 ML VIAL IVP ONE; -SCOPOLAMINE 1.5MG/72HR PATCH TRANSDERM ONE; -metroNIDAZOLE-NS PMX 500 MG in SALINE 1 100ML.BAG IVPB ONE
--- NOTE | 2021-04-03 12:05 | P.STRESS ---
- Stress Test Note Stress Test Results/Findings: Exam Performed: dobutamine stress echo Exam Date: 04/03/21 Reason for Exam: Bradycardia Height: 6 ft 7 in Weight: 113.398 kg Protocol: Dobutamine stress echo Stage: IV Duration of Exercise: 12:36 Resting Heart Rate: 52 Resting Blood Pressure: 123/81 Maximum Achieved Heart Rate: 144 Maximum Achieved Blood Pressure: 166/89 85% PMHR: 144 100% PMHR: 169 METS: Technologist Comment: Stress Test Results/Findings: Patient received dobutamine infusion per protocol The central EKG showed sinus rhythm with early repolarization abnormality, [address] elevation There was no ECG evidence for ischemia RVOT PVCs were noted with dobutamine infusion No nonsustained ventricular tachycardia Normal heart rate and blood pressure response At baseline, normal LV size and systolic function was noted, without any wall motion abnormalities With dobutamine infusion, there was a stepwise increment in overall LV contractility, without development of any wall motion abnormalities At the recovery, regional and global LV systolic function, normal Impression No ECG or echocardiographic evidence for ischemia
== END | disposition home or self-care (01) ==
LOC: RADNMMAIN 08:50
PROVIDERS: ATTEND Family Medicine
DX: R00.1 Bradycardia, unspecified (principal)
CPT/HCPCS: 93351

== ENCOUNTER → 2021-04-06 | Outpatient (CLI) | payer BC ==
--- NOTE | 2021-04-07 08:36 | ECHOF ---
Referral Reason:R00.1 Bradycardia MEASUREMENTS -------- HEIGHT: 198.1 cm WEIGHT: 113.4 kg BP: RVIDd: 2.5 cm (< 3.3) IVSd: 1.1 cm (0.6 - 1.1) LVIDd: 5.0 cm (3.9 - 5.3) LVPWd: 1.2 cm (0.6 - 1.1) IVSs: 1.5 cm LVIDs: 4.0 cm LVPWs: 1.3 cm LAESV Index (A-L): 15.48 ml/m Ao Diam: 3.4 cm (2.0 - 3.7) AV Cusp: 2.3 cm (1.5 - 2.6) LA Diam: 3.7 cm (2.7 - 3.8) MV EXCURSION: 17.701 mm (> 18.000) MV EF SLOPE: 99 mm/s (70 - 150) EPSS: 0.7 cm MV E Francois: 0.45 m/s MV DecT: 325 ms MV A Francois: 0.62 m/s MV E/A Ratio: 0.72 RAP: 5.00 mmHg RVSP: 19.65 mmHg FINDINGS -------- Sinus rhythm. This was a technically good study. LV size, wall thickness and systolic function are normal, with an EF greater than 55%. The left demetra tricular size is normal. The right ventricle is normal in size. The left atrial size is normal. The right atrial size is normal. The aortic valve is trileaflet, and appears structurally normal. No aortic stenosis or regurgitation. There is trace to mild mitral regurgitation. Mild tricuspid regurgitation present. Right ventricular systolic pressure is normal at < 35 mmHg. Trace/mild (physiologic) pulmonic regurgitation. There is no pericardial effusion. CONCLUSIONS -------- 1. LV size, wall thickness and systolic function are normal, with an EF greater than 55%. 2. The left ventricular size is normal. 3. The right ventricle is normal in size. 4. The left atrial size is normal. 5. The right atrial size is normal. 6. The aortic valve is trileaflet, and appears structurally normal. No aortic stenosis or regurgitati on. 7. There is trace to mild mitral regurgitation. 8. Mild tricuspid regurgitation present. 9. There is no pericardial effusion. PROGRESSIVE CARE UNIT REGISTERED NURSE: Sharron Johnson RDCS
--- NOTE | 2021-04-12 11:41 | MR ---
EXAMINATION TYPE: MR lspaolo/sacrum wo/w con DATE OF EXAM: 04/06/2021 COMPARISON: None HISTORY: Numbness down left and right leg for 1 year, back issues for 15 years, history of surgery. CONTRAST: 0 mL intravenous Gadavist. TECHNIQUE: Multiplanar, multisequence images of the lumbar spine were acquired. FINDINGS: Cord terminates at the L1 level. L5-S1: Disc space narrowing is present. There is a large far left paracentral disc herniation with ef facement and impingement of the exiting S1 nerve root. On postcontrast images peripheral enhancement surrounding the disc herniation is evident. Correlate with radicular symptoms. Endplate changes and n arrowing of disc height is present. Modic type I degenerative endplate changes are present. L4-L5: Broad-based disc bulge is present with moderate anterior thecal sac compression. No stenosis i s present. Mild facet degenerative changes present. Foramina appear patent. L3-L4: Mild disc bulge is present with anterior thecal sac contact. No spinal canal stenosis or neura l foraminal stenosis is present. L2-L3: No significant disc bulge or disc herniation. No spinal canal stenosis. No foraminal stenosi s. L1-L2: No significant disc bulge or disc herniation. No spinal canal stenosis. No foraminal stenosi s. T12-L1: No significant disc bulge or disc herniation. No spinal canal stenosis. No foraminal stenos is. No abnormal enhancement is evident. IMPRESSION: 1. Large left paracentral disc herniation L5-S1. Correlate with left S1 radicular symptoms. EXAMINATION TYPE: MR michael/sacrum wo/w con DATE OF EXAM: 04/06/2021 COMPARISON: None HISTORY: Numbness down left and right leg for 1 year, back issues for 15 years, history of surgery. CONTRAST: Performed utilizing 11 mL intravenous Gadavist gadolinium contrast. TECHNIQUE: Multiplanar, multiecho imaging on a 3.0 Denisha magnet is performed through the sacral spine . FINDINGS: Sacral canal and neural foramen appear patent. Osseous signal is normal. No suspicious acut e changes evident. Sacroiliac joints appear normal. Presacral space appears normal. IMPRESSIONS: 1. Normal sacral canal. Sacrum and coccyx as visualized appear normal
== END | disposition home or self-care (01) ==
LOC: RADECHMAIN 14:56
PROVIDERS: ATTEND Family Medicine
DX: M51.27 Other intervertebral disc displacement, lumbosacral region (principal)
CPT/HCPCS: 93306; 72158; 72197; A9585

== ENCOUNTER → 2022-05-21 | Outpatient (CLI) | payer BC ==
--- NOTE | 2022-05-21 16:39 | P.PN ---
Subjective Progress Note Date: 05/21/22 This is a 52-year-old male patient with known history of obstructive sleep apnea and the patient is coming in for annual checkup regarding his NANCY. He is doing extremely well. He is currently retired and is doing a lot of traveling and is also interested in obtaining a micropap for travel purposes. The patient currently has a ResMed 11 and the patient is extremely compliant to his machine. He is using machine every night. He is using the ZAPATA fx medium-size nasal pillow. He likes his mask as the patient is not having any significant leaks on the mask. Based on her compliancy data collection on his machine, the patient utilizes machine more than 4 hours on a percent of the time and is compliancy for more than 4 hours is 30 out of 30 and the patient has been averaging around 9.5 hours of CPAP use per night. His average pressure delivered by them she is around 9.6 cm of water and the patient has a leak of 14 L/m. His AHI down to 0.3. No weight gain. No chest pain. No angina. No shortness of breath. No nocturnal heartburn. His current [place] score is at 7. Objective - Exam BP is 138/81, pulse is 71, respirations 16, temperature is 97.2 and his weight is 264. The patient appeared well nourished and normally developed. Vital signs as documented. Head exam is unremarkable. No scleral icterus or corneal arcus noted. Neck is without jugular venous distension, thyromegaly, or carotid bruits. Carotid upstrokes are brisk bilaterally. Lungs are clear to auscultation and percussion. Cardiac exam reveals the PMI to be normally sized and situated. Rhythm is regular. First and second heart sounds normal. No murmurs, rubs or gallops. Abdominal exam reveals normal bowel sounds, no masses, no organomegaly and no aortic enlargement. Extremities are nonedematous and both femoral and pedal pulses are normal.Examination of the skin revealed no evidence of significant rashes, suspicious appearing nevi or other concerning lesions.Neurologically, the patient is awake and alert and the patient does not have any focal neurological deficit. Cranial nerves are essentially intact. Assessment and Plan Plan: Obstructive sleep apnea, AHI of 29, successfully treated with a newer generation ResMed 10, APAP pressures of 8/20 with excellent clinical response and compliancy. Hypersomnia, recovered Obesity, weight is essentially stable at 264 pounds, actually slightly lower compared to left. Previous history of cardiac PVCs, recovered Diverticulosis History of viral meningitis Plan Continue CPAP therapy at the same level of pressures and refills on the supplies was given. Encourage further weight loss. Midpregnancy scheduled. Maintaining good sleep hygiene measures. No issues for now. The patient is purchasing a portable CPAP unit on his behalf. She will continue using the same pressure settings. I'll see him back in follow-up in one year.
== END ==
LOC: SLEEP 15:07
PROVIDERS: ATTEND Internal Medicine Critical Care Medicine
DX: G47.33 Obstructive sleep apnea (adult) (pediatric) (principal); Z88.8 Allergy status to other drugs, medicaments and biological substances; Z87.891 Personal history of nicotine dependence; E66.9 Obesity, unspecified; I49.3 Ventricular premature depolarization; K57.90 Diverticulosis of intestine, part unspecified, without perforation or abscess without bleeding; Z86.61 Personal history of infections of the central nervous system; Z99.89 Dependence on other enabling machines and devices

== ENCOUNTER → 2023-10-13 | Outpatient (CLI) | payer BC ==
--- NOTE | 2023-10-13 14:42 | CTL ---
EXAMINATION TYPE: CT Low Dose Lung DATE OF EXAM ORDERED: 10/13/2023 HISTORY: . Lung cancer screening CT DLP: 148.[address] CTDI: 3.7 mGy Automated exposure control for dose reduction was used. SCREENING VISIT: Follow-up. COMPARISON: 10/10/2022. TECHNIQUE: Low dose computed tomography scan was performed through the chest at 1 mm thick sections a nd reconstructed images in multiple planes at 1 mm and [address] DIAGNOSTIC QUALITY: Satisfactory FINDINGS: LUNG NODULES: There are no suspicious pulmonary nodules.. LUNGS: COPD: Severity: Mild emphysema. Fibrosis: Severity: None Lymph nodes: No adenopathy. Other findings: RIGHT PLEURAL SPACE: Effusion: None Calcification: None Thickening: None Pneumothorax: None LEFT PLEURAL SPACE: Effusion: None Calcification: None Thickening: None Pneumothorax: None HEART: Heart Size: Normal Coronary Calcification: Mild coronary artery calcifications. Pericardial Effusion: None OTHER FINDINGS: Upper abdomen: None Bony thorax: None Supraclavicular region: None Other: None IMPRESSION: 1. Negative lung cancer screening examination for significant pulmonary nodules. 2. Mild emphysema. 3. Mild coronary artery calcification. CT LUNG RAD AND CT CHEST RECOMMENDATION: Lung-Rad 1 Negative: Continue annual screening with LDCT in 12 months.
== END | disposition home or self-care (01) ==
LOC: RADCTMAIN 14:08
PROVIDERS: ATTEND Internal Medicine Critical Care Medicine
DX: Z12.2 Encounter for screening for malignant neoplasm of respiratory organs (principal); I25.10 Atherosclerotic heart disease of native coronary artery without angina pectoris; J43.9 Emphysema, unspecified; Z87.891 Personal history of nicotine dependence
CPT/HCPCS: 71271

== ENCOUNTER → 2024-10-13 | Outpatient (CLI) | payer BC ==
--- NOTE | 2024-10-13 12:35 | CTL ---
EXAMINATION TYPE: CT Low Dose Lung DATE OF EXAM: 10/13/2024 11:51 AM COMPARISON: Low-dose lung cancer screening 10/13/2023 CLINICAL INDICATION: Male, 54 years old with history of K57.92 DVTRCLI OF INTEST, PART UNSP, W/O PERF OR A; HISTORY OF SMOKER, history of tobacco use. TECHNIQUE: Multiple axial non-contrast scans were obtained from approximately the lung apices through the upper abdomen. Coronal and sagittal reformatted images were obtained. Low dose technique was uti lized. MIP were created on a separate workstation and submitted for review. CT DLP: 138.7 mGycm, Automated exposure control for dose reduction was used. CT Contrast: Contrast used: None Oral contrast used: None FINDINGS: Lack of intravenous contrast and low dose technique limits the evaluation of the vascular and soft ti ssue structures. LUNGS: No evidence of pulmonary fibrosis. No evidence of focal consolidation, pneumothorax or pleural effusion. Centrilobular emphysema changes. Nodules: RUL: None. RML: None. RLL: None. FAIZA: None. LLL: None. AIRWAY: Patent and unremarkable. HEART: Size within normal limits. Mild coronary artery calcifications present. MEDIASTINUM: No gross evidence of adenopathy. VASCULATURE: No aortic aneurysm. MUSCULOSKELETAL: No acute osseous abnormalities SOFT TISSUES/LYMPH NODES: Unremarkable. LOWER NECK: No significant findings. UPPER ABDOMEN: No significant findings. IMPRESSION: 1. No clinically significant pulmonary nodules. 2. Mild emphysema. CT LUNG RAD AND CT CHEST RECOMMENDATION: Lung-Rad 1 Negative: Continue annual screening with LDCT in 12 months. S Modifier (other clinically significant findings): None Recommend smoking cessation (if current smoker), or continuation of smoking cessation (if prior smoke r). Annual screening for lung cancer with low-dose computed tomography is recommended in adults ages 55 to 77 years who have a 30 pack-year smoking history and currently smoke or have quit within the pa st 15 years. Screening should be discontinued once a person has not smoked for 15 years or develops a health problem that substantially limits life expectancy or the ability or willingness to have curat solo lung surgery. Lung rads 2021 [email or web address] [email or web address], , 10/13/2024 12:33 PM
== END | disposition home or self-care (01) ==
LOC: RADCTMAIN 11:06
PROVIDERS: ATTEND Internal Medicine Critical Care Medicine
DX: Z12.2 Encounter for screening for malignant neoplasm of respiratory organs (principal); J43.2 Centrilobular emphysema; Z87.891 Personal history of nicotine dependence
CPT/HCPCS: 71271